=== PATIENT | male | born 1995 | race Caucasian/White ===

== ENCOUNTER 2016-12-11 21:32 | Emergency (ER) | payer OTHER ==
[~2016-12-11] VITALS: Ht 185.4 cm; Wt 93.4 kg
[2016-12-11 21:41] VITALS: TEMP 36.9; Ht 185.4 cm; Wt 93.4 kg
[2016-12-11] MEDS ORDERED: DIPHTHERIA/TETANUS/PERTUSSIS 0.5 ML SYR/VIAL IM. ONE (22:30)
[2016-12-11] MEDS ORDERED: CETI10TA84 PO (22:59)
[2016-12-11 23:05] VITALS: BP 137/89; PULSE 66; O2SAT 100
--- NOTE | 2016-12-12 00:22 | EMERGENCY ROOM VISIT NOTE ---
ED Visit Note First contact with patient: 22:17 CHIEF COMPLAINT: Finger laceration HISTORY OF PRESENT ILLNESS: This 21-year-old male patient presents to the emergency department after cutting the left third finger on a mandolin at home about one hour ago. The bleeding has stopped. Denies weakness or numbness of the finger. The patient has full range of motion of the fingers. The patient rates the pain as dull and 2/10. The patient denies any other injuries. The patient's tetanus shot is not up to date. REVIEW OF SYSTEMS: A 6 system review of systems was completed with positives and pertinent negatives listed in the HPI. ALLERGIES: No known allergies MEDICATIONS: No chronic medications PMH: Otherwise healthy SOCIAL HISTORY: Lives at home with significant other PHYSICAL EXAM: Vital Signs: Reviewed Nurse's notes, vital signs stable. GENERAL : White male, in no acute distress, well developed, well nourished. SKIN: There is a shallow 1.0 cm long laceration on the distal medial aspect of the left third finger. The edges do not gape apart with traction. There is no foreign material in the wound and it looks clean. There is no bleeding. No deep structures such as tendons, bones, or significant blood vessels are seen in the base of the wound. Extension and flexion of the finger is full and strong. Full range of motion of the wrist and other fingers. Capillary refill less than 2 seconds. Normal sensation to light and sharp touch. EMERGENCY DEPARTMENT COURSE: I examined the patient. He appears to have a small laceration to the left third finger. This laceration does cause a small flap, but this does not penetrate deeply. He does not have other significant findings. His tetanus was updated here in the department. The wound was cleansed with Betadine and irrigated with normal saline. The laceration was repaired with Dermabond, and he tolerated the procedure well. Wound care instructions were discussed and the patient was invited back to the ER with any new, worsening, or concerning symptoms. Current/Historical Medications Scheduled PRN Cetirizine (Zyrtec), 10 MG PO DAILY PRN for Allergy Symptoms Allergies Coded Allergies: No Known Allergies (Unverified , 12/11/16) Vital Signs Date Time Temp Pulse Resp B/P Pulse Ox O2 Delivery O2 Flow Rate FiO2 12/11/16 23:05 66 16 137/89 100 12/11/16 21:41 36.9 64 18 142/99 99 Room Air Medications Administered Medications (Trade) Dose Ordered Sig/Pili Route Start Time Stop Time Status Last Admin Dose Admin Diphtheria/ Pertussis/Tetanus Vacc (Adacel Inj) 0.5 ml ONCE ONCE IM. 12/11/16 22:30 12/11/16 22:31 DC 12/11/16 22:32 0.5 ML Departure Information Impression Primary Impression: Finger laceration Dispostion Home / Self-Care Condition GOOD Forms HOME CARE DOCUMENTATION FORM, IMPORTANT VISIT INFORMATION Patient Instructions [facility], ED Laceration Ext Skin Glue Additional Instructions You were seen and evaluated today on an emergency basis only. This is not a substitute for, or an effort to provide, complete comprehensive medical care. It is not possible to recognize and treat all injuries or illnesses in a single emergency department visit. For this reason it is recommended that you followup with your primary care physician with any ongoing or persistent symptoms. The glue will fall off by itself over the next 2-3 days. Try not to submerge the glue. You may gently shower as normal. You are welcome to return to the emergency department anytime with new, worsening, or concerning symptoms.
== END 2016-12-11 23:06 | disposition home or self-care (01) ==
LOC: C.EDB 21:34 → C.EDD 23:06
DX: S61.213A Laceration without foreign body of left middle finger without damage to nail, initial encounter (principal); W26.8XXA Contact with other sharp object(s), not elsewhere classified, initial encounter; Z23 Encounter for immunization